=== PATIENT | female | born 1995 | race Caucasian/White ===

== ENCOUNTER 2018-03-18 08:50 | Emergency (ER) | payer OTHER ==
[~2018-03-18] VITALS: Ht 160 cm; Wt 68.0 kg
[2018-03-18 09:07] VITALS: BP 116/80
--- NOTE | 2018-03-18 09:48 | ED EAR COMPLAINT ---
History of Present Illness General Chief Complaint: Animal/Insect Bite Stated Complaint: ? TICK IN EAR Source: patient Exam Limitations: no limitations Vital Signs & Intake/Output Vital Signs & Intake/Output Vital Signs Date Time Temp Pulse Resp B/P B/P Pulse O2 O2 Flow FiO2 Mean Ox Delivery Rate 03/18 0907 98.1 55 20 116/80 98 Room Air Allergies Coded Allergies: No Known Drug Allergies (Intermediate, NONE 03/18/18) Reconcile Medications Ethinyl Estradiol/Drospirenone (Gianvi 3 MG-0.02 MG Tablet) 0.02 MG-3 MG (24) TABLET 1 TAB PO DAILY BC (Reported) Triage Note: ? TICK IN LEFT EAR SINCE LAST PM. DENIES PAIN Triage Nurses Notes Reviewed? yes Onset: Gradual Duration: hour(s): Timing: single episode today Injury Environment: home : No Patient currently breastfeeds: No HPI: 22-year-old female presents emergency department complaining of "tick in left ear". Patient states that this morning she felt as though it was crawling in her left ear, she was scratching at her ear however she did not touch the bug. Patient felt a bug crawl into her ear, she suspects that it is a tick. The patient did not visualize a tick on her skin last night or recently. She states she was outdoors yesterday. (Shannon Ndiaye) Past History Travel History Traveled to [place] past 21 day No Medical History Any Pertinent Medical History? none EENT: NONE Cardiovascular: NONE Respiratory: NONE Gastrointestinal: NONE Hepatic: NONE Renal: NONE Musculoskeletal: NONE Psychiatric: NONE Endocrine: NONE Surgical History Surgical History: non-contributory Psychosocial History What is your primary language Swedish Tobacco Use: Never used ETOH Use: denies use Family History Hx Contributory? No (Shannon Ndiaye) Review of Systems Review of Systems Constitutional: Reports: no symptoms. EENTM: Reports: see HPI. Respiratory: Reports: no symptoms. Cardiovascular: Reports: no symptoms. GI: Reports: no symptoms. Genitourinary: Reports: no symptoms. Musculoskeletal: Reports: no symptoms. Skin: Reports: no symptoms. Neurological/Psychological: Reports: no symptoms. Hematologic/Endocrine: Reports: no symptoms. Immunologic/Allergic: Reports: no symptoms. All Other Systems: Reviewed and Negative (Shannon Ndiaye) Physical Exam Physical Exam General Appearance: well developed/nourished, no apparent distress, alert, awake Head: atraumatic, normal appearance Eyes: Bilateral: normal appearance. Ears: Left: other (tick in ear canal). Nose: normal inspection Mouth/Throat: normal mouth inspection Neck: normal inspection, supple, full range of motion Cardiovascular/Respiratory: no respiratory distress Back: normal inspection, normal range of motion Neurologic/Psych: awake, alert, oriented x 3 Skin: intact, normal color, warm/dry (Imelda MARTINEZ,Shannon Grande) Progress Differential Diagnoses I considered the following diagnoses in my evaluation of the patient: [Tick bite , Lyme disease, foreign body in ear, otitis media] Plan of Care: Tick was removed using a small alligator forceps by Dr. Francois. At time of removal take appeared intact, the tick was not burrowed/engorged. Reexamination does not show evidence of retained foreign body or bleeding. Patient tolerated this procedure well. Given the short duration of her there is a very low suspicion for exposure to Lyme disease in this patient. Patient will follow-up with primary care doctor as needed. The patient agrees with the plan of care. Initial ED EKG: none (Shannon Ndiaye) Departure Departure Disposition: HOME OR SELF CARE Condition: Stable Clinical Impression Primary Impression: Tick bite of left ear Qualifiers: Encounter type: initial encounter Qualified Codes: S00.462A - Insect bite (nonvenomous) of left ear, initial encounter; W57.XXXA - Bitten or stung by nonvenomous insect and other nonvenomous arthropods, initial encounter Referrals: Patient Has No Primary Care Dr (PCP/Family) Additional Instructions: Follow-up with her primary care doctor. Return if he had any worsening symptoms or concerns. Please note that there might be incidental findings in your evaluation that are unrelated to the current emergency department visit. Please notify your primary care doctor about this emergency department visit in order to obtain and review all of the testing performed so that these incidental findings can be monitored as needed. If you had an x-ray performed, please understand that some fractures may not be seen on the initial set of x-rays. If your symptoms persist you might need a repeat set of x-rays to check for such a fracture. If you had a laceration evaluated, please understand that foreign bodies such as glass or wood may not be visible to the naked eye or on plain x-rays. If the wound becomes red, swollen, increasingly more painful or if there is any drainage from the wound, please have it reevaluated by a physician for the possibility of a retained foreign body. If you're unable to follow up as outlined in the discharge instructions please return to the emergency department. Thank you for choosing the [facility] Emergency Department for your care. It was a pleasure to serve you today. Departure Forms: Customer Survey General Discharge Information (Imelda MARTINEZ,Shannon Grande) PA/[employer] Co-Sign Statement Statement: ED Attending supervision documentation- [x] I saw and evaluated the patient. I have also reviewed all the pertinent lab results and diagnostic results. I agree with the findings and the plan of care as documented in the PA's/[employer]'s documentation. [] I have reviewed the ED Record and agree with the PA's/[employer]'s documentation. [x] Additions or exceptions (if any) to the PAs/[employer]'s note and plan are summarized below: I personally performed the aforementioned insect extraction with miscue forceps from the patient's left external auditory canal. Inspection following extraction found no retained tick body parts in the wall of the auditory canal. I agree with the assessment that she is at ultralow risk for Lyme disease given the short duration and does not require empiric therapy. (Monster Francois DO)
[2018-03-18] MEDS ORDERED: GIANVI 3 MG-0.1 EACH PO (10:09)
== END 2018-03-18 10:16 ==
LOC: ERH 08:50
DX: S00.462A Insect bite (nonvenomous) of left ear, initial encounter (principal); W57.XXXA Bitten or stung by nonvenomous insect and other nonvenomous arthropods, initial encounter; Y93.9 Activity, unspecified; Y92.89 Other specified places as the place of occurrence of the external cause